=== PATIENT | female | born 1990 | race Two or more races ===

== ENCOUNTER 2018-03-13 09:14 | Emergency (ER) | payer BC ==
[2018-03-13] MEDS: LIDOCAINE WITH 8.4% SOD BICARB 3 ML DISP.SYRIN. INJ (09:45)
[2018-03-13] MEDS: HYDROcodone/APAP 5/325MG 1 TAB TABLET PO (09:45)
== END 2018-03-13 10:16 | disposition home or self-care (01) ==
LOC: ER 09:14
DX: L02.415 Cutaneous abscess of right lower limb (principal)
CPT/HCPCS: 10060; 99283

== ENCOUNTER 2018-04-03 22:16 | Emergency (ER) | payer BC | END 2018-04-03 23:20 | disposition home or self-care (01) | LOC: ER 22:16 | DX: L03.315 Cellulitis of perineum (principal); L02.215 Cutaneous abscess of perineum | CPT/HCPCS: 99283 ==